=== PATIENT | female | born 1965 | race Caucasian/White ===

== ENCOUNTER 2021-04-21 00:22 | Day surgery (SDC) | payer BC, SELFPAY ==
[2021-04-02 14:41] VITALS: BMI 34.9
[2021-04-21 06:19] VITALS: BP 127/88; PULSE 75; RESP 16; TEMP 35.9; O2SAT 100
[2021-04-21] MEDS: LACTATED RINGERS 1,000 ML 150 ML IV CONT (06:29)
--- NOTE | 2021-04-21 07:15 | WPDANESEPPF ---
Anes - Initial Pre Proc Eval Procedure: Operation Date: 04/21/21 07:30 Proposed Procedures p Screening Colonoscopy - Rex Mirza MD Date/Time: 04/21/21 07:15 Surgeon: Rex Mirza MD Pre Op Diagnosis: neoplasm screening Patient Data Age: 55 Gender: F Height: 1.55 m Weight: 83.7 kg Last Vital Signs Temp 96.7 F L 04/21/21 06:19 Pulse 75 04/21/21 06:19 Resp 16 04/21/21 06:19 BP 127/88 04/21/21 06:19 Pulse Ox 100 04/21/21 06:19 Allergies Allergy/AdvReac Type Severity Reaction Status Date / Time No Known Allergies Allergy Verified 04/21/21 06:16 Home Medications Medication Instructions Recorded Confirmed Type atorvastatin 10 mg tablet See Rx Instructions .ROUTE 03/16/21 04/21/21 Rx .COMPLEX #90 tablet clobetasol 1 applic TOPICAL DAILY 04/02/21 04/21/21 History halobetasol propion-tazarotene 1 applic TOPICAL DAILY 04/02/21 04/21/21 History [Duobrii] Patient hx anesthesia problems: none Family hx anesthesia problems: none Results Review: All pre-operative results and documents have been reviewed as part of the pre-operative evaluation. [facility]LY [facility] Past Medical History Medical History (Updated 04/21/21 @ 07:13 by Mariusz Armstrong MD) Dyslipidemia Social History Social History Smoking status: Never smoker Alcohol intake: current Drinks per week: 4 Alcohol use details: wine Substance use: never Substance use type: does not use Living arrangements: with family Spiritual care concerns: No Anes - Eval Final PreProcedure Day of Procedure 04/21/21 07:15 Patient weight: obese Heart: regular rate and rhythm Lungs: clear to auscultation Airway: Mallampati scale class III Neurological: alert and oriented Last oral intake: >/= 8 hours ASA classification: II Emergent: no Anesthetic plan: proceed Anesthesia type and monitoring: general GIVS and standard monitoring Results Review: All pre-operative results and documents have been reviewed as part of the pre-operative evaluation. Informed Consent: The patient's anesthetic plan and its attendant risks and benefits were discussed with the patient/family/POA. Questions were solicited and answers provided to the satisfaction of the patient/family/POA.
--- NOTE | 2021-04-21 07:21 | WPDGICN ---
Assessment and Plan Assessment and plan (1) Family history of colonic polyps: Code(s): Z83.71 - Family history of colonic polyps Status: Acute Assessment and Plan: Patient's father had colon polyps. Plan is for screening colonoscopy. (2) Encounter for screening colonoscopy: Code(s): Z12.11 - Encounter for screening for malignant neoplasm of colon Status: Acute Assessment and Plan: Screening colonoscopy advised because of age. Also because of father having had colon polyps. Further recommendations will be given after colonoscopy. GI Consult Note Consult date/time: 04/21/21 07:21 HPI: Jyoti Juarez is a 55 year old female Presents for screening colonoscopy. She reports that her current weight appetite bowel movements are normal. She denies abdominal pain. She has had no bleeding. Family history is significant that her father had colon polyps. Patient presents today for neoplasia screening colonoscopy. Review of Systems Review of Systems: All systems reviewed & are unremarkable except as noted in HPI and below PMFSH Past Medical History Medical History (Updated 04/21/21 @ 07:23 by Rex Mirza MD) Dyslipidemia Social History Social History Smoking status: Never smoker Alcohol intake: current Drinks per week: 4 Alcohol use details: wine Substance use: never Substance use type: does not use Living arrangements: with family Spiritual care concerns: No Meds Home Medications and Allergies Home Medications Medication Instructions Recorded Confirmed Type atorvastatin 10 mg tablet See Rx Instructions .ROUTE 03/16/21 04/21/21 Rx .COMPLEX #90 tablet clobetasol 1 applic TOPICAL DAILY 04/02/21 04/21/21 History halobetasol propion-tazarotene 1 applic TOPICAL DAILY 04/02/21 04/21/21 History [Duobrii] Allergies Allergy/AdvReac Type Severity Reaction Status Date / Time No Known Allergies Allergy Verified 04/21/21 06:16 Vital Signs Vital Signs - 24 hr 04/21/21 06:19 Temperature 96.7 F L Pulse Rate 75 Respiratory Rate 16 Blood Pressure 127/88 Pulse Oximetry 100 Exam Narrative: Physical exam reveals patient be alert. Vital signs stable. HEENT exam is unremarkable. Patient is anicteric. Lungs are clear to auscultation and percussion. Heart is without murmur or extra sounds. Abdominal exam bowel sounds are present soft nontender with no hepatosplenomegaly. Digital external rectal exam is normal.
[2021-04-21 07:46] VITALS: BP 123/66; PULSE 79; RESP 22; O2SAT 100
[2021-04-21 07:56] VITALS: BP 124/71; PULSE 60; RESP 20; O2SAT 100
[2021-04-21 08:06] VITALS: BP 116/68; PULSE 70; RESP 25; O2SAT 100
== END 2021-04-21 08:11 | disposition home or self-care (01) ==
PROVIDERS: PCP Family Medicine; Visit Provider Internal Medicine Gastroenterology
PROC: 0DJD8ZZ Inspection of Lower Intestinal Tract, Via Natural or Artificial Opening Endoscopic (ICD-10-PCS; CPT 45378; principal; 2021-04-21 07:30)
DX: Z12.11 Encounter for screening for malignant neoplasm of colon (principal); K64.8 Other hemorrhoids; Z83.71 Family history of colonic polyps; E78.5 Hyperlipidemia, unspecified; E66.9 Obesity, unspecified; Z68.34 Body mass index [BMI] 34.0-34.9, adult
CPT/HCPCS: 45378; J2704; J7120

== ENCOUNTER → 2021-08-13 11:01 | Outpatient (CLI) | payer BC, SELFPAY ==
--- NOTE | ~2021-08-13 | DEXA_ITS ---
Bone Density Report Name: MARCO ANTONIO AVILA Age: 56 Sex: Female Ethnicity: White Date of : 1965 Indication: osteopenia; postmenopausal Referring Provider: Tung Blanco Study: Bone densitometry was performed. Exam Date: August 13, 2021 Accession number: [id number] Bone Density: Region BMD T-score Z-score Classification AP Spine (L1-L4) 0.901 -1.3 -0.1 Osteopenia Femoral Neck (Left) 0.914 0.6 1.7 Normal Total Hip (Left) 1.070 1.1 1.8 Normal Femoral Neck (Right) 0.850 0.0 1.2 Normal Total Hip (Right) 0.979 0.3 1.1 Normal Total Hip Mean 1.025 0.7 1.5 Normal World Health Organization criteria for BMD impression classify patients as: Normal (T-score at or above -1.0), Osteopenia (T-score between -1.0 and -2.5), or Osteoporosis (T-score at or below -2.5). 10-year Fracture Risk(1): Major Osteoporotic Fracture 5.2% Hip Fracture 0.1% Reported Risk Factors: [place] (), Neck BMD=0.850, BMI=34.5 (1) FRAX(R) Version 3.08. Fracture probability calculated for an untreated patient. Fracture probability may be lower if the patient has received treatment. Previous Exams: Region Exam Age BMD T-score BMD Change BMD Change Date g/cm2 vs Baseline vs Previous AP Spine(L1-L4) 08/13/2021 56 0.901 -1.3 0.013 0.013 05/17/2018 52 0.888 -1.4 Total Hip(Left) 08/13/2021 56 1.070 1.1 0.007 0.007 05/17/2018 52 1.064 1.0 Total Hip(Right) 08/13/2021 56 0.979 0.3 -0.018 -0.018 05/17/2018 52 0.997 0.4 *Denotes significance at 95% confidence level, LSC for AP Spine = 0.022 g/cm2, LSC for Total Hip = 0.027 g/cm2 Clinical Information Provided by Patient: Patient maximum height was 61.5 Menopause Age: 51 Drinks caffeinated beverages Onset of menses at age 12 Number of children 3 Impression: The patient has low bone mass, based on the Total Spine T-score. The patient has an estimated ten-year risk of hip fracture of 0.1% and an estimated ten-year risk of major fracture of 5.2%, based on the WHO FRAX algorithm. No significant bone loss was observed. Discussion: BONE DENSITY IS LOW AT ONE OR MORE SKELETAL SITES. This patient's lowest T-score is low at one or more skeletal sites. It meets the World Health Organization's (WHO) criteria for ?low bone mass? (T-score between -1.0 and -2.5). The patient's 10-year risk of fracture as calculated by FRAX is less than the th
--- NOTE | ~2021-08-13 | MM_ITS ---
EXAMINATION: MM screening toña BI w chiquis HISTORY: Screening mammogram TECHNIQUE: Craniocaudal and mediolateral oblique 3-D tomosynthesis images were obtained and synthetic 2-D images were generated. CAD analysis was submitted and interpreted. COMPARISON: 05/17/2018, 03/29/2012 bilateral screening mammogram examinations BREAST PARENCHYMAL COMPOSITION: The breasts are almost entirely fatty. FINDINGS: There is no evidence of suspicious mass, calcification, or architectural distortion to sugg est malignancy in either breast. There has been no suspicious interval change. IMPRESSION: 1. No mammographic evidence of malignancy. 2. Recommend routine screening mammography in one year. BI-RADS Category 1: Negative Reviewed, dictated and finalized at location A.
== END ==
PROVIDERS: PCP Family Medicine; Visit Provider Physician Assistant
DX: Z12.31 Encounter for screening mammogram for malignant neoplasm of breast (principal); Z78.0 Asymptomatic menopausal state; R59.0 Localized enlarged lymph nodes; M85.88 Other specified disorders of bone density and structure, other site
CPT/HCPCS: 77063; 77067; 77080

== ENCOUNTER → 2023-02-23 10:31 | Outpatient (CLI) | payer BC, SELFPAY ==
--- NOTE | ~2023-02-23 | XR_ITS ---
XR knee RT 3V DATE: 02/23/2023 10:41 INDICATION: Lateral and posterior right knee pain TECHNIQUE: AP, lateral, sunrise views COMPARISON: None FINDINGS: No fracture or dislocation or joint effusion. Slight periarticular spurring of the patella. Joint spaces are relatively preserved. No radiopaque in tra-articular loose body or chondrocalcinosis. No periosteal reaction or bone destruction. IMPRESSION: Minimal osteoarthritis Reviewed, dictated and finalized at location B. IMPRESSION: Minimal osteoarthritis
== END ==
PROVIDERS: PCP Nurse Practitioner; Visit Provider Nurse Practitioner
DX: M17.11 Unilateral primary osteoarthritis, right knee (principal); M25.561 Pain in right knee
CPT/HCPCS: 73562

== ENCOUNTER → 2023-06-08 10:49 | Outpatient (CLI) | payer BC, SELFPAY ==
--- NOTE | ~2023-06-08 | MM_ITS ---
EXAMINATION: MM screening toña BI w chiquis HISTORY: Screening TECHNIQUE: Craniocaudal and mediolateral oblique 3-D tomosynthesis images were obtained and synthetic 2-D images were generated. CAD analysis was submitted and interpreted. COMPARISON: Comparison to multiple prior studies sequentially, with oldest reviewed study dated 04/23. BREAST PARENCHYMAL COMPOSITION: There are scattered areas of fibroglandular density. FINDINGS: There is no evidence of suspicious mass, calcification, or architectural distortion to sugg est malignancy in either breast. There has been no suspicious interval change. IMPRESSION: 1. No mammographic evidence of malignancy. 2. Recommend routine screening mammography in one year. BI-RADS Category 1: Negative Reviewed, dictated and finalized at location A. CIAN
== END ==
PROVIDERS: PCP Nurse Practitioner; Visit Provider Nurse Practitioner
DX: Z12.31 Encounter for screening mammogram for malignant neoplasm of breast (principal)
CPT/HCPCS: 77063; 77067